=== PATIENT | female | born 1955 | race Caucasian/White ===

== ENCOUNTER 2018-04-21 05:29 | Inpatient (IN) | payer BC ==
[2018-04-21] MEDS: CEFAZOLIN 2 GM/50 ML (PMX) 50 ML IVPB (06:53)
[2018-04-21] MEDS: LACTATED RINGER'S 1,000 ML IV* (06:53)
[2018-04-21] MEDS ORDERED: DESFLURANE 15 MIN (07:00)
[2018-04-21] MEDS ORDERED: CEFAZOLIN 1 GM INJ ×2 (07:00→07:10)
[2018-04-21] MEDS ORDERED: SUCCINYLCHOLINE CHLORIDE 100 MG/5 ML SYG IV (07:05)
[2018-04-21] MEDS ORDERED: PROPOFOL 20 ML (07:05)
[2018-04-21] MEDS ORDERED: LIDOCAINE 1% (MDV) 20 ML INJ (07:05)
[2018-04-21] MEDS ORDERED: MIDAZOLAM 1 MG/ML 2 ML INJ (07:05)
[2018-04-21] MEDS ORDERED: ROCURONIUM 50 MG INJ (07:10)
[2018-04-21] MEDS: BUPIVACAINE 0.25% (MPF) 30 ML INJ (07:15)
[2018-04-21] MEDS: POLYMYXIN/BACITRACIN 1L IRRIG (07:15)
[2018-04-21] MEDS ORDERED: ONDANSETRON 4 MG INJ (07:20)
[2018-04-21] MEDS ORDERED: DEXAMETHASONE 4 MG/ML 1 ML INJ (07:20)
[2018-04-21] MEDS ORDERED: LABETALOL HCL 20MG INJ (07:26)
[2018-04-21] MEDS ORDERED: PHENYLephrine (100 MCG/ML) 5ML SYG (07:40)
[2018-04-21] MEDS: THROMBIN 5000 UNIT VIAL (08:24)
[2018-04-21] MEDS: GELATIN SIZE 100 SPONGE (08:24)
[2018-04-21] MEDS ORDERED: SUGAMMADEX SODIUM 200 MG/2 ML VIAL IV (09:49)
[2018-04-21] MEDS ORDERED: PROCHLORPERAZINE 10 MG TAB PO (10:30)
[2018-04-21] MEDS ORDERED: ONDANSETRON 4 MG INJ IV (10:30)
[2018-04-21] MEDS ORDERED: NACL 0.9% 3 ML SYG IV (10:30)
[2018-04-21] MEDS ORDERED: CEPASTAT LOZENGE MT (10:30)
[2018-04-21] MEDS ORDERED: DIPHENHYDRAMINE 50 MG CAP PO (10:30)
[2018-04-21] MEDS ORDERED: ZOLPIDEM 5 MG TAB PO (10:30)
[2018-04-21] MEDS ORDERED: TRIMETHOBENZAMIDE 100 MG/ML VIAL IM (10:30)
[2018-04-21] MEDS ORDERED: HYDROCODONE/APAP (5/325) TAB PO (10:30)
[2018-04-21] MEDS ORDERED: BETHANECHOL 25 MG TAB PO (10:30)
[2018-04-21] MEDS ORDERED: DIAZEPAM 5 MG/ML SYG IM (10:30)
[2018-04-21] MEDS ORDERED: NALOXONE (0.4 MG/ML) INJ IV (10:30)
[2018-04-21] MEDS ORDERED: HYDROmorphONE 0.2 MG/ML PCA (10:41)
[2018-04-21] MEDS: HYDROmorphONE 1 MG/5 ML IV SYRINGE IV ×2 (10:42→10:59)
[2018-04-21] MEDS: HYDROmorphONE 0.2 MG/ML PCA IV ×2 (10:48→17:51)
[2018-04-21] MEDS: CEFAZOLIN 1 GM/50 ML (PMX) 50 ML IVPB ×3 (11:41→23:20)
[2018-04-21] MEDS: DEXTROSE 5%-0.45% NACL 1,000 ML IV ×2 (11:42→23:18)
[2018-04-21] MEDS: MONTELUKAST 10 MG TAB PO (20:04)
[2018-04-21] MEDS: RANITIDINE 150 MG TAB PO (20:04)
[2018-04-21] MEDS: ATORVASTATIN 20 MG TAB PO (20:04)
[2018-04-21] MEDS ORDERED: NON-FORMULARY/PATIENT OWN MED (Simvastatin* (Zocor*) 40 MG) PO (21:00)
[2018-04-22 05:26] LABS: HEMATOCRIT 31.8 % (37.0-47.0); HEMOGLOBIN 10.4 g/dl (12.0-16.0)
[2018-04-22] MEDS: DEXTROSE 5%-0.45% NACL 1,000 ML IV ×2 (06:20→16:20)
[2018-04-22] MEDS: CEFAZOLIN 1 GM/50 ML (PMX) 50 ML IVPB (06:29)
[2018-04-22 06:38] LABS: ANION GAP 7 (8-16); BLOOD UREA NITROGEN 13 mg/dl (7-20); CALCIUM 8.6 mg/dl (8.4-10.2); CARBON DIOXIDE 28 mmol/L (21-31); CHLORIDE 108 mmol/L (97-110); CREATININE 0.58 mg/dl (0.44-1.00); GLUCOSE 130 mg/dl (70-220); POTASSIUM 4.3 mmol/L (3.5-5.1); SODIUM 139 mmol/L (135-144)
[2018-04-22] MEDS: LEVOTHYROXINE 125 MCG TAB PO (07:55)
[2018-04-22] MEDS: DOCUSATE SODIUM 100 MG CAP PO ×2 (08:23→21:23)
[2018-04-22] MEDS: ASCORBIC ACID 500 MG TAB PO ×2 (08:23→21:23)
[2018-04-22] MEDS: FERROUS SULFATE (EC) 325 MG TAB PO ×3 (08:23→21:23)
[2018-04-22] MEDS: CITALOPRAM 20 MG TAB PO (08:24)
[2018-04-22] MEDS: CHOLECALCIFEROL 1,000 UNIT TAB PO (08:24)
[2018-04-22] MEDS: BETHANECHOL 25 MG TAB PO ×2 (08:24→12:34)
[2018-04-22] MEDS: RANITIDINE 150 MG TAB PO ×2 (08:24→21:23)
[2018-04-22] MEDS: HYDROCODONE/APAP (5/325) TAB PO ×3 (08:25→17:09)
[2018-04-22 14:12] LABS: ADD UMIC YES; UR ASCORBIC ACID NEGATIVE (NEGATIVE); UR BILIRUBIN (Dip) NEGATIVE (NEGATIVE); UR BLOOD (Dip) 1+ mg/dL (NEGATIVE); UR CLARITY CLEAR (CLEAR); UR COLOR STRAW (YELLOW); UR GLUCOSE (Dip) NEGATIVE (NEGATIVE); UR KETONES (Dip) NEGATIVE (NEGATIVE); UR LEUKOCYTE ESTERASE (Dip) NEGATIVE Leu/ul (NEGATIVE); UR NITRITE (Dip) NEGATIVE (NEGATIVE); UR RBC 2 /HPF (0-5); UR SPECIFIC GRAVITY (Dip) 1.008 (1.003-1.030); UR TOTAL PROTEIN (Dip) NEGATIVE (NEGATIVE); UR UROBILINOGEN (Dip) NEGATIVE (NEGATIVE); UR WBC 1 /HPF (0-5)
[2018-04-22] MEDS: DIAZEPAM 5 MG TAB PO (19:47)
[2018-04-22] MEDS: ATORVASTATIN 20 MG TAB PO (21:23)
[2018-04-22] MEDS: MONTELUKAST 10 MG TAB PO (21:23)
[2018-04-22] MEDS: OXYCODONE/ACETAMINOPHEN (5/325) TAB PO (21:26)
[2018-04-23] MEDS: OXYCODONE/ACETAMINOPHEN (10/325) TAB PO ×6 (01:14→23:04)
[2018-04-23] MEDS: DEXTROSE 5%-0.45% NACL 1,000 ML IV ×3 (02:08→21:23)
[2018-04-23] MEDS: LEVOTHYROXINE 125 MCG TAB PO (06:20)
[2018-04-23] MEDS: FERROUS SULFATE (EC) 325 MG TAB PO ×3 (09:19→21:08)
[2018-04-23] MEDS: DOCUSATE SODIUM 100 MG CAP PO ×2 (09:19→21:08)
[2018-04-23] MEDS: ASCORBIC ACID 500 MG TAB PO ×2 (09:19→21:08)
[2018-04-23] MEDS: RANITIDINE 150 MG TAB PO ×2 (09:19→21:08)
[2018-04-23] MEDS: CHOLECALCIFEROL 1,000 UNIT TAB PO (09:19)
[2018-04-23] MEDS: CITALOPRAM 20 MG TAB PO (09:19)
[2018-04-23] MEDS: MONTELUKAST 10 MG TAB PO (21:08)
[2018-04-23] MEDS: ATORVASTATIN 20 MG TAB PO (21:08)
[2018-04-24] MEDS: OXYCODONE/ACETAMINOPHEN (10/325) TAB PO (03:55)
[2018-04-24 05:31] LABS: ADD MAN DIFF? NO
[2018-04-24 05:38] LABS: BASOPHIL # 0.1 10^3/ul (0.0-0.1); BASOPHILS % 0.6 % (0.0-2.0); EOSINOPHILS # 0.3 10^3/ul (0.0-0.5); EOSINOPHILS % 3.1 % (0.0-7.0); HEMATOCRIT 33.6 % (37.0-47.0); HEMOGLOBIN 10.9 g/dl (12.0-16.0); LYMPHOCYTES # 2.1 10^3/ul (0.8-2.9); LYMPHOCYTES % 20.2 % (15.0-51.0); MEAN CORPUSCULAR HEMOGLOBIN 27.5 pg (29.0-33.0); MEAN CORPUSCULAR HGB CONC 32.4 g/dl (32.0-37.0); MEAN CORPUSCULAR VOLUME 84.8 fl (82.0-101.0); MEAN PLATELET VOLUME 9.7 fl (7.4-10.4); MONOCYTE # 1.2 10^3/ul (0.3-0.9); NEUTROPHIL # 6.8 10^3/ul (1.6-7.5); NEUTROPHILS % 64.6 % (39.0-77.0); PLATELET COUNT 259 10^3/UL (140-415); RED BLOOD COUNT 3.96 10^6/ul (4.20-5.40); RED CELL DISTRIBUTION WIDTH 13.4 % (11.5-14.5)
[2018-04-24 05:38] LABS: WHITE BLOOD COUNT 10.5 10^3/ul (4.8-10.8)
[2018-04-24 06:00] LABS: BLOOD UREA NITROGEN 11 mg/dl (7-20); CALCIUM 9.1 mg/dl (8.4-10.2); CARBON DIOXIDE 29 mmol/L (21-31); CHLORIDE 103 mmol/L (97-110); CREATININE 0.69 mg/dl (0.44-1.00); GLUCOSE 95 mg/dl (70-220); SODIUM 140 mmol/L (135-144)
[2018-04-24] MEDS: LEVOTHYROXINE 125 MCG TAB PO (06:14)
[2018-04-24] MEDS: DEXTROSE 5%-0.45% NACL 1,000 ML IV ×2 (08:20→18:20)
[2018-04-24] MEDS: FERROUS SULFATE (EC) 325 MG TAB PO ×3 (08:39→21:03)
[2018-04-24] MEDS: ASCORBIC ACID 500 MG TAB PO ×2 (08:39→21:02)
[2018-04-24] MEDS: DOCUSATE SODIUM 100 MG CAP PO ×2 (08:39→21:02)
[2018-04-24] MEDS: CITALOPRAM 20 MG TAB PO (08:39)
[2018-04-24] MEDS: CHOLECALCIFEROL 1,000 UNIT TAB PO (08:39)
[2018-04-24] MEDS: RANITIDINE 150 MG TAB PO ×2 (08:40→21:02)
[2018-04-24] MEDS: BETHANECHOL 25 MG TAB PO (09:24)
[2018-04-24] MEDS: ACETAMINOPHEN 325 MG TAB PO (09:24)
[2018-04-24 09:28] LABS: ANION GAP 8 (5-13)
[2018-04-24] MEDS ORDERED: OXYCODONE/ACETAMINOPHEN (5/325) TAB PO (17:30)
[2018-04-24] MEDS: OXYCODONE/ACETAMINOPHEN (5/325) TAB PO (19:27)
[2018-04-24] MEDS: AL HYDROX/MG HYDROX/SIMETH 30 ML CUP PO (21:00)
[2018-04-24] MEDS: ATORVASTATIN 20 MG TAB PO (21:02)
[2018-04-24] MEDS: MONTELUKAST 10 MG TAB PO (21:03)
[2018-04-25] MEDS: DIAZEPAM 5 MG TAB PO ×5 (02:11→22:58)
[2018-04-25] MEDS: DEXTROSE 5%-0.45% NACL 1,000 ML IV ×2 (04:20→13:39)
[2018-04-25] MEDS: OXYCODONE/ACETAMINOPHEN (5/325) TAB PO (05:23)
[2018-04-25] MEDS: LEVOTHYROXINE 125 MCG TAB PO (06:26)
[2018-04-25] MEDS: AL HYDROX/MG HYDROX/SIMETH 30 ML CUP PO (06:26)
[2018-04-25] MEDS ORDERED: NA PHOSPHATE/BIPHOS 133 ML ENEMA PR (07:30)
[2018-04-25] MEDS ORDERED: HYDROCODONE/APAP (5/325) TAB PO (07:30)
[2018-04-25] MEDS: FERROUS SULFATE (EC) 325 MG TAB PO ×3 (09:00→20:39)
[2018-04-25] MEDS: DOCUSATE SODIUM 100 MG CAP PO ×2 (09:29→20:39)
[2018-04-25] MEDS: CITALOPRAM 20 MG TAB PO (09:30)
[2018-04-25] MEDS: CHOLECALCIFEROL 1,000 UNIT TAB PO (09:30)
[2018-04-25] MEDS: RANITIDINE 150 MG TAB PO ×2 (09:31→20:39)
[2018-04-25] MEDS: ASCORBIC ACID 500 MG TAB PO ×2 (09:31→20:39)
[2018-04-25] MEDS: HYDROCODONE/APAP (5/325) TAB PO ×4 (10:31→22:48)
[2018-04-25] MEDS: BISACODYL 10 MG SUPP PR (14:07)
[2018-04-25] MEDS: PREGABALIN 75 MG CAP PO (20:39)
[2018-04-25] MEDS: ATORVASTATIN 20 MG TAB PO (20:39)
[2018-04-25] MEDS: MONTELUKAST 10 MG TAB PO (20:40)
[2018-04-26] MEDS: DEXTROSE 5%-0.45% NACL 1,000 ML IV ×2 (00:20→10:20)
[2018-04-26] MEDS: HYDROCODONE/APAP (5/325) TAB PO ×3 (06:14→14:01)
[2018-04-26] MEDS: LEVOTHYROXINE 125 MCG TAB PO (06:14)
[2018-04-26] MEDS: CITALOPRAM 20 MG TAB PO (09:30)
[2018-04-26] MEDS: PREGABALIN 75 MG CAP PO (09:31)
[2018-04-26] MEDS: DOCUSATE SODIUM 100 MG CAP PO (09:31)
[2018-04-26] MEDS: ASCORBIC ACID 500 MG TAB PO (09:31)
[2018-04-26] MEDS: FERROUS SULFATE (EC) 325 MG TAB PO ×2 (09:31→12:31)
[2018-04-26] MEDS: CHOLECALCIFEROL 1,000 UNIT TAB PO (09:31)
[2018-04-26] MEDS: RANITIDINE 150 MG TAB PO (09:34)
== END 2018-04-26 14:45 | disposition home or self-care (01) | DRG 516 ==
LOC: REC 05:29 → MS1 11:15
PROC: 01NB0ZZ Release Lumbar Nerve, Open Approach (ICD-10-PCS; principal; 2018-04-21 07:00)
PROC: 00U20KZ Supplement Dura Mater with Nonautologous Tissue Substitute, Open Approach (ICD-10-PCS; 2018-04-21 07:00)
PROC: 4A11X4G Monitoring of Peripheral Nervous Electrical Activity, Intraoperative, External Approach (ICD-10-PCS; 2018-04-21 07:00)
DX: M48.061 Spinal stenosis, lumbar region without neurogenic claudication (principal); G97.41 Accidental puncture or laceration of dura during a procedure; E03.9 Hypothyroidism, unspecified; E78.5 Hyperlipidemia, unspecified; I10 Essential (primary) hypertension; R33.9 Retention of urine, unspecified
CPT/HCPCS: 72020; 80048; 81001; 85014; 85018; 85025; 86850; 86900; 86901; 86920; 87086; 88304; 88311; 97110; 97116; 97162; 97530